=== PATIENT | female | born 1970 | race Caucasian/White ===

== ENCOUNTER → 2018-03-03 | Outpatient (CLI) | payer BC ==
--- NOTE | 2018-03-04 12:13 | CT ---
EXAMINATION TYPE: CT adrenal glands wo/w con DATE OF EXAM: 03/03/2018 COMPARISON: None HISTORY: hypothyroidism, verify growth on gland, pt states LT side CT DLP: 1681 mGycm Automated exposure control for dose reduction was used. CONTRAST: Performed with IV Contrast, patient injected with 100 mL of Isovue 300. FINDINGS: There is a lobulated left adrenal gland lesion measuring 2.7 x 1.8 cm. This demonstrates only minimal enhancement with washout compatible of a benign lipid rich adrenal adenoma. Additionally there is ma croscopic fat and unenhanced Hounsfield unit mean measures -4.45. Right adrenal gland is unremarkable without focal nodule. The lung bases are well aerated. There is diffuse hypoattenuation of the hepatic parenchyma, which mo st commonly corresponds to hepatic steatosis and limits evaluation for underlying hepatic masses. Gal lbladder is contracted although no gross evidence of cholelithiasis is seen. There is a small hiatal hernia present. Spleen is homogeneous and nonenlarged. Pancreas is grossly unremarkable. The right kidney demonstrates a too small to accurately characterize probable right renal cyst in the lower pole on image 42 of series 6. The left kidney is lobular in contour, atrophic, and contains ca lyceal diverticuli in the upper pole. No dilated large or small bowel are noted. Scattered colonic diverticula are seen without pericolonic fat stranding. No greater than 1 cm short axis lymph node is noted in the abdomen or pelvis. Minimal degenerative changes of the spine are noted. IMPRESSION: 1. BENIGN LEFT ADRENAL GLAND LESION. MACROSCOPIC FAT FAVORS A DIAGNOSIS OF MYELOLIPOMA ALTHOUGH LIPID RICH ADENOMA REMAINS A POSSIBILITY. 2. LEFT RENAL ATROPHY AND SUPERIOR POLE CALYCEAL DIVERTICULI WITH CORTICAL SCARRING. 3. HEPATIC STEATOSIS APPEARING MODERATE IN DEGREE.
== END | disposition home or self-care (01) ==
LOC: RADCTMAIN 13:59 → EDSEX 13:59
PROVIDERS: ATTEND Internal Medicine Endocrinology, Diabetes & Metabolism
DX: E27.8 Other specified disorders of adrenal gland (principal); K76.0 Fatty (change of) liver, not elsewhere classified; N26.1 Atrophy of kidney (terminal); K57.90 Diverticulosis of intestine, part unspecified, without perforation or abscess without bleeding; N28.89 Other specified disorders of kidney and ureter; E03.8 Other specified hypothyroidism
CPT/HCPCS: 74170; Q9967

== ENCOUNTER → 2018-03-18 | Outpatient (CLI) | payer BC ==
[2018-03-18 19:27] LABS: Albumin 4.6 g/dL (3.80-4.90); Albumin/Globulin Ratio 2.3 (1.20-2.10); Anion Gap 7.2 mmol/L (4.00-12.00); Calcium 9.4 mg/dL (8.7-10.3); Carbon Dioxide 28.8 mmol/L (21.6-31.8); LDL Cholesterol,Calculated 111.4 mg/dL (0.0-131.0); Potassium 4.4 mmol/L (3.5-5.5); Total Bilirubin 0.3 mg/dL (0.3-1.2); Total Protein 6.6 g/dL (6.2-8.2); VLDL Calculation 51.6 mg/dL (5.00-40.00)
== END | disposition home or self-care (01) ==
LOC: LABWHC1 11:50
PROVIDERS: ATTEND Internal Medicine Endocrinology, Diabetes & Metabolism
DX: E03.8 Other specified hypothyroidism (principal); D35.00 Benign neoplasm of unspecified adrenal gland; E78.1 Pure hyperglyceridemia
CPT/HCPCS: 36415; 80053; 80061; 84443

== ENCOUNTER → 2018-07-03 | Outpatient (CLI) | payer BC ==
[2018-07-03 16:38] LABS: Albumin 4.5 g/dL (3.80-4.90); Albumin/Globulin Ratio 1.96 (1.60-3.17); Calcium 9.9 mg/dL (8.7-10.3); Globulin 2.3 g/dL (1.6-3.3); LDL Cholesterol,Calculated 92.2 mg/dL (0.0-131.0); Total Bilirubin 0.3 mg/dL (0.3-1.2); Total Protein 6.8 g/dL (6.2-8.2); VLDL Calculation 45.8 mg/dL (5.00-40.00)
== END | disposition home or self-care (01) ==
LOC: LABWHC1 09:16
PROVIDERS: ATTEND Internal Medicine Endocrinology, Diabetes & Metabolism
DX: D35.02 Benign neoplasm of left adrenal gland (principal); E03.8 Other specified hypothyroidism
CPT/HCPCS: 36415; 80053; 80061; 84443

== ENCOUNTER → 2018-10-27 | Outpatient (CLI) | payer BC | END | disposition home or self-care (01) | LOC: LABWHC1 12:52 | PROVIDERS: ATTEND Internal Medicine Endocrinology, Diabetes & Metabolism | DX: E03.8 Other specified hypothyroidism (principal) | CPT/HCPCS: 36415; 84443 ==

== ENCOUNTER → 2018-12-29 | Outpatient (CLI) | payer BC ==
[2018-12-29 16:52] LABS: Chol/HDL Ratio 4.83; LDL Cholesterol,Calculated 139.8 mg/dL (0.0-131.0); VLDL Calculation 40.2 mg/dL (5.00-40.00)
== END | disposition home or self-care (01) ==
LOC: LABWHC1 07:55
PROVIDERS: ATTEND Internal Medicine Endocrinology, Diabetes & Metabolism
DX: E03.8 Other specified hypothyroidism (principal); E78.1 Pure hyperglyceridemia
CPT/HCPCS: 36415; 80061; 84443

== ENCOUNTER → 2020-07-18 | Outpatient (CLI) | payer BC ==
[2020-07-18 21:21] LABS: Albumin 4.9 g/dL (3.80-4.90); Albumin/Globulin Ratio 2.13 (1.60-3.17); Anion Gap 10.9 mmol/L (4.00-12.00); BUN/Creat Ratio 17.5 Ratio (12.00-20.00); Carbon Dioxide 26.1 mmol/L (21.6-31.8); Globulin 2.3 g/dL (1.6-3.3); Non-African American GFR(CKD) 52.7 (60.0-200.0); Potassium 4.2 mmol/L (3.5-5.5); Total Bilirubin 0.5 mg/dL (0.3-1.2); Total Protein 7.2 g/dL (6.2-8.2)
== END | disposition home or self-care (01) ==
LOC: LABWHC1 09:04
PROVIDERS: ATTEND Internal Medicine Endocrinology, Diabetes & Metabolism
DX: E03.8 Other specified hypothyroidism (principal); D35.02 Benign neoplasm of left adrenal gland
CPT/HCPCS: 36415; 80053; 82088; 84244; 84443

== ENCOUNTER → 2021-02-09 | Outpatient (CLI) | payer BC ==
[2021-02-09 18:04] LABS: ALT 33 U/L (8-44); AST 33 U/L (13-35); African American GFR (CKD) 85.2 (60.0-200.0); Albumin 4.9 g/dL (3.8-4.9); Albumin/Globulin Ratio 2.02 (1.60-3.17); Alkaline Phosphatase 94 U/L (41-126); BUN/Creat Ratio 15.15 Ratio (12.00-20.00); Blood Urea Nitrogen 13.8 mg/dL (9.0-27.0); Calcium 10.2 mg/dL (8.7-10.3); Carbon Dioxide 26.5 mmol/L (21.6-31.8); Chloride 103 mmol/L (96-109); Chol/HDL Ratio 3.91 Ratio; Globulin 2.5 g/dL (1.6-3.3); Glucose 124 mg/dL (70-110); LDL Cholesterol,Calculated 69.4 mg/dL (0.0-131.0); Non-African American GFR(CKD) 73.5 (60.0-200.0); Potassium 4.5 mmol/L (3.5-5.5); Sodium 142 mmol/L (135-145); Total Protein 7.4 g/dL (6.2-8.2)
== END | disposition home or self-care (01) ==
LOC: LABWHC1 09:33
PROVIDERS: ATTEND Internal Medicine Endocrinology, Diabetes & Metabolism
DX: E78.1 Pure hyperglyceridemia (principal); D35.02 Benign neoplasm of left adrenal gland
CPT/HCPCS: 36415; 80053; 80061

== ENCOUNTER 2021-11-20 05:39 | Day surgery (SDC) | payer BC ==
[~2021-11-20 05:39] MED LIST: LACTATED RINGERS 1,000 ML IV SCH; LIDOCAINE 1% (10MG/ML) FOR IV START INTRADERMA PRN
[2021-11-20 06:29] VITALS: TEMP 97.9
[2021-11-20 06:40] LABS: Glucose,Whole Blood 137 mg/dL (70-110)
[2021-11-20] MEDS ORDERED: LIDOCAINE 2% INJ 20 MG/ML (2 ML VIAL) ONE (07:06)
[2021-11-20] MEDS ORDERED: fentaNYL (PF) 50 MCG/ML 2 ML AMP ONE (07:06)
[2021-11-20] MEDS ORDERED: MIDAZOLAM 2 MG/2 ML VIAL ONE (07:06)
[2021-11-20] MEDS ORDERED: PROPOFOL 10 MG/ML 20 ML VIAL IV ONE (07:06)
--- NOTE | 2021-11-20 07:30 | P.PCN ---
Date of Procedure: 11/20/21 Procedure(s) Performed: Brief history: Patient is a pleasant 51-year-old white female scheduled for an elective upper endoscopy as well as colonoscopy as a part of evaluation of reflux and history of GERD and screening for colon cancer. Procedure performed: Esophagogastroduodenoscopy with biopsy Colonoscopy with snare polypectomy Preoperative diagnosis: GERD/screening for colon cancer Anesthesia: MAC Procedure: After informed consent was obtained from the patient was brought into the endoscopy unit and IV sedation was administered by anesthesia under continuous monitoring. Initially upper endoscopy was done. The Olympus GF 160 video endoscope was inserted inserted into the mouth and esophagus intubated without any difficulty and was gradually advanced into the stomach and duodenum and carefully examined. The bulb and second part of the duodenum appeared normal. The scope was then withdrawn into the stomach adequately insufflated with air and upon careful examination the antrum and body, cardia and fundus appeared normal. The scope was then withdrawn into the esophagus. The GE junction was located at 35 cm to the incisors. It appeared regular with no erythema erosions or ulcerations. There were 2 superficial erosions at the GE junction consistent with LA grade a reflux esophagitis. Rest of the esophagus appeared normal. Patient tolerated the procedure well. At this time the patient continued to remain sedation. Initial digital rectal examination was normal. Olympus CF 160 video colonoscope was then inserted into the rectum and gradually advanced to the cecum without any difficulty. Careful examination was performed as the scope was gradually being withdrawn. The prep was excellent. The cecum, ascending colon, transverse colon, descending colon, sigmoid colon and rectum appeared normal. In the proximal rectum at 18 cm from the anal was there was a 7-8 mm polyp that was removed by snare polypectomy. Scattered left-sided diverticulosis seen. Retroflexion was performed in the rectum and no lesions were noted. Patient tolerated the procedure well. Impression: 1. Upper endoscopy revealed 1 erosion at the GE junction consistent with LA grade A reflux esophagitis and no evidence of Cabral's esophagus 2. Colonoscopy revealed 7-8 mm proximal rectal polyp status post polypectomy and scattered left-sided diverticulosis Recommendations: AFindings of this examination were discussed with the patient as well as his family. He was advised to follow with the biopsy results. If the biopsy results adenoma he she can have a repeat colonoscopy in 5 years.
[2021-11-20 07:51] VITALS: PULSE 60; RESP 20
[2021-11-20 08:06] VITALS: BP 148/77
== END 2021-11-20 08:16 ==
LOC: ORWHC2ENDO 05:39
PROVIDERS: ATTEND Internal Medicine Gastroenterology
DX: Z12.11 Encounter for screening for malignant neoplasm of colon (principal); K21.00 Gastro-esophageal reflux disease with esophagitis, without bleeding; K62.1 Rectal polyp; K57.30 Diverticulosis of large intestine without perforation or abscess without bleeding; I10 Essential (primary) hypertension; E78.5 Hyperlipidemia, unspecified; G47.33 Obstructive sleep apnea (adult) (pediatric); E11.9 Type 2 diabetes mellitus without complications; E07.9 Disorder of thyroid, unspecified; N20.0 Calculus of kidney; M35.2 Behcet's disease; K22.70 Barrett's esophagus without dysplasia
CPT/HCPCS: 88305; 45385; 43239; J2250; J3010; J2704; J2001

== ENCOUNTER → 2022-07-08 | Outpatient (CLI) | payer BC ==
[2022-07-08 16:40] LABS: ALT 29 U/L (8-44); AST 38 U/L (13-35); Albumin 4.7 g/dL (3.8-4.9); Albumin/Globulin Ratio 1.88 (1.60-3.17); Alkaline Phosphatase 92 U/L (41-126); Blood Urea Nitrogen 13.8 mg/dL (9.0-27.0); Carbon Dioxide 24.7 mmol/L (20.0-27.5); Chloride 104 mmol/L (96-109); Globulin 2.5 g/dL (1.6-3.3); Glucose 199 mg/dL (70-110); Non-African American GFR(CKD) 64.7 (60.0-200.0); Potassium 4.9 mmol/L (3.5-5.5); Sodium 141 mmol/L (135-145); Total Protein 7.2 g/dL (6.2-8.2)
[2022-07-08 16:41] LABS: Chol/HDL Ratio 3.81 Ratio; LDL Cholesterol,Calculated 94.1 mg/dL (0.0-131.0)
== END | disposition home or self-care (01) ==
LOC: LABWHC1 07:18
PROVIDERS: ATTEND Internal Medicine Endocrinology, Diabetes & Metabolism
DX: E78.1 Pure hyperglyceridemia (principal); E03.8 Other specified hypothyroidism; I15.2 Hypertension secondary to endocrine disorders
CPT/HCPCS: 36415; 80053; 80061; 84443